=== PATIENT | female | born 1950 | race Asian ===

== ENCOUNTER → 2016-09-05 | Outpatient (CLI) | payer BC, OTHER ==
[~2016-09-05] MED LIST: AMINOPHYLLINE 25 MG/ML, 10ML ONE; ASPI-496 PO; ATOR10TA PO; CHOL20002 PO; CYAN1TAB29 PO; MULT-658 PO; OMEG1CAP23 PO; REGADENOSON 0.4 MG/5 ML SYRINGE ONE; RISE5TAB PO
== END | disposition home or self-care (01) ==
LOC: CFH 07:37
PROVIDERS: ATTEND Internal Medicine Cardiovascular Disease
DX: R94.31 Abnormal electrocardiogram [ECG] [EKG] (principal)
CPT/HCPCS: 78452; 93017; 93306; A9502; J0280; J2785